=== PATIENT | female | born 1945 | race Caucasian/White ===

== ENCOUNTER 2017-04-09 10:53 | Inpatient (IN) | payer MEDICARE ==
[~2017-04-09 10:53] MED LIST: ACETAMINOPHEN 1,000 MG/100 ML BTL IV ONE; CELECOXIB 100 MG CAPSULE PO ONE; FAMOTIDINE 20MG TABLET PO ONE; MECLIZINE 25 MG TABLET PO ONE; METOCLOPRAMIDE 10 MG TABLET PO ONE; VANCOMYCIN HCL 1,000 MG in 0.9 % SODIUM CHLORIDE 250ML 250 ML IVPB ONE
[2017-04-09 13:31] LABS: ABO GROUP O; ANTIBODY SCREEN NEGATIVE (NEGATIVE); RH TYPE POSITIVE
[2017-04-09] MEDS ORDERED: FENTANYL PF 100MCG/2ML VIAL IV ONE (14:00)
[2017-04-09] MEDS ORDERED: PROPOFOL 10 MG/ML VIAL IV ONE (14:00)
[2017-04-09] MEDS ORDERED: MIDAZOLAM HCL 2MG/2ML VIAL IV ONE (14:00)
[2017-04-09] MEDS ORDERED: DIPHENHYDRAMINE HCL IV 50 MG/ML VIAL IVP ONE (14:00)
[2017-04-09] MEDS ORDERED: HYDROMORPHONE HCL 2 MG/ML VIAL IV ONE (14:00)
[2017-04-09] MEDS ORDERED: LIDOCAINE 2% MDV (20MG/ML) 20ML VIAL IV ONE (14:00)
[2017-04-09] MEDS ORDERED: MORPHINE SULFATE 5 MG/ML PFS IVP PRN ×4 (14:44)
[2017-04-09] MEDS ORDERED: TRAMADOL HCL 50 MG TABLET PO PRN ×2 (14:44)
[2017-04-09] MEDS ORDERED: DIPHENHYDRAMINE HCL 25 MG CAPSULE PO PRN (14:44)
[2017-04-09] MEDS ORDERED: HYDROCODONE/APAP 7.5/325MG TABLET PO PRN (14:44)
[2017-04-09] MEDS ORDERED: KETOROLAC 30 MG/ML VIAL IVP PRN ×2 (14:44)
[2017-04-09] MEDS ORDERED: ZOLPIDEM TARTRATE 5 MG TABLET PO PRN (14:44)
[2017-04-09] MEDS ORDERED: HYDROMORPHONE HCL 2 MG/ML VIAL IM PRN (14:44)
[2017-04-09] MEDS ORDERED: AL HYDROX/MAG HYDROX 30ML UD PO PRN (14:44)
[2017-04-09] MEDS ORDERED: PROMETHAZINE HCL 12.5 MG in 0.9 % SODIUM CHLORIDE 100ML 50 ML IVPB PRN (14:44)
[2017-04-09] MEDS ORDERED: ONDANSETRON HCL IV 4 MG/2 ML VIAL IVP PRN (14:44)
[2017-04-09] MEDS ORDERED: MAGNESIUM HYDROXIDE 30 ML UDC PO PRN (14:44)
[2017-04-09] MEDS ORDERED: BISACODYL 10 MG SUPP RC PRN (14:44)
[2017-04-09] MEDS ORDERED: METOCLOPRAMIDE HCL 10 MG/2 ML VIAL IVP PRN (14:44)
[2017-04-09] MEDS ORDERED: ACETAMINOPHEN 325 MG TAB PO PRN (14:44)
[2017-04-09] MEDS ORDERED: HYDROCODONE/APAP 5/325MG TABLET PO PRN ×2 (14:44)
[2017-04-09] MEDS ORDERED: NALOXONE 0.4 MG/1 ML VIAL IVP PRN (14:44)
[2017-04-09] MEDS ORDERED: ACETAMINOPHEN W/ CODEINE 300MG/30MG TABLET PO PRN ×2 (14:44)
[2017-04-09] MEDS ORDERED: HYDROMORPHONE HCL 1MG/ML **SYRINGE IM PRN (14:44)
[2017-04-09] MEDS ORDERED: ACETAMINOPHEN W/ CODEINE 300MG/60MG TABLET PO PRN ×2 (14:44)
[2017-04-09] MEDS ORDERED: DEXTROSE 5 % AND 0.9 % NACL 1,000 ML IV PRN (17:30)
[2017-04-09] MEDS: FERROUS SULFATE 325 MG TAB PO SCH (22:51)
[2017-04-09] MEDS: DOCUSATE SODIUM 100 MG CAPSULE PO SCH (22:51)
[2017-04-09] MEDS ORDERED: FLU VAC QS 2017-18 (INPT, 6MO+) 60MCG/0.5ML IM ONE (23:21)
[2017-04-10] MEDS: VANCOMYCIN HCL 1,000 MG in 0.9 % SODIUM CHLORIDE 250ML 250 ML IVPB SCH ×2 (02:46→14:05)
[2017-04-10 06:30] LABS: HEMATOCRIT 29.7 % (35.0-47.0); HEMOGLOBIN 9.4 gm/dl (11.6-16.0)
[2017-04-10] MEDS ORDERED: MECLIZINE 25 MG TABLET PO PRN (06:52)
[2017-04-10] MEDS: CELECOXIB 100 MG CAPSULE PO SCH (10:22)
[2017-04-10] MEDS: FERROUS SULFATE 325 MG TAB PO SCH ×2 (10:22→21:40)
[2017-04-10] MEDS: RIVAROXABAN 10 MG TABLET PO SCH (10:23)
[2017-04-10] MEDS: ATENOLOL PO SCH ×2 (10:23→11:19)
[2017-04-10] MEDS: CHLORTHALIDONE PO SCH ×2 (10:23→11:19)
[2017-04-10] MEDS: DOCUSATE SODIUM 100 MG CAPSULE PO SCH ×2 (10:23→21:40)
[2017-04-10] MEDS: INVOKANA 100 MG PO SCH (10:24)
[2017-04-10] MEDS: PATIENT OWN MED: LISINOPRIL 20 MG PO SCH ×2 (10:24→11:19)
[2017-04-10] MEDS: PATIENT OWN MED: PRAVASTATIN 80 MG PO SCH (10:25)
--- NOTE | 2017-04-10 11:15 | Rehab Evaluation ---
Patient Information - Patient Information Diagnosis: R hip OA Ordered Treatment: PT Evaluate and Treat Status: Initial Evaluation Surgery: Yes Date of Surgery: 04/09/17 Past Medical/Surgical Hx: PAST MEDICAL/SURGICAL HISTORY Past Surgical History back surgery x2 right carpal tunnel sx laproscopic hiatal hernia repair PMH - Respiratory Hx Respiratory Disorders Yes Hx Bronchitis Yes: none recently Comment: has chronic cough-nonproductive PMH - Cardiovascular Hx Cardiovascular Disorders Yes Hx Hypertension Yes Exercise Tolerance Fair Comment: due to hip pain less now PMH - Neuro Hx Neurological Disorders Yes Hx Neuropathy Yes: left carpal tunnel syndrome PMH - GI Hx Gastrointestinal Disorders Yes Hx Gastroesophageal Reflux Yes: has cough probably from acid reflux Hx Hiatal Hernia Yes: repaired Hx Nausea/Vomiting "sick sour stomach from milk products" Hx Weight Loss/Weight Gain Yes: recently 20lbs loss over this last summer PMH - Hx Genitourinary Disorders No Patient No PMH - Endocrine Hx Endocrine Disorders Yes Hx Diabetes Yes Hx of NIDDM Yes Comment: last A1c 6.5 within last 6 months PMH - Musculoskeletal Hx Musculoskeletal Disorders Yes Hx Arthritis Yes PMH - Psych Hx Psychiatric Problems Yes Hx Anxiety Yes PMH - Hematology/Oncology Hx Hematology/Oncology No Disorders Premorbid Status: Detail (The patient was independent with all mobility and ADL' s.) Social History: Detail (The patient lives alone but is going to be staying with her daughter upon discharge. The patient's daughter has a single story home with one step, platform and one step at the enterance without railings. The bathroom is equipped with a walk in shower and regular toilet ( The patient's daughter is acquiring a riser seat and shower seat), no grab bars are present. The patient was vended a walker at pre-op instruction.) Precautions: [place], Other (JARED precautions) - Time With Patient Total Time Spent With Patient (Min): 30 Treatment Procedures: Detail (Initial Evaluation, Home exercise program review including: ankle pumps, gluteal sets, hamstring sets, heelslides, hip abduction and quad sets all x 10 reps.) Subjective Information - Subjective Information Per Patient (The patient had minimal complaints of R hip pain. The patient required cueing to correctly name all the hip precautions. The patient had complaints of lightheadness.) Objective Data - Mental Status Patient Orientation: Oriented x3 - Visual Perception Appears within normal limits for therapeutic activities - ROM Not within normal limits (The patient's L LE AROM was WNL. The patient's R LE ROM was within THR precautiosn) - Strength/Tone Not within normal limits (The patient's L LE strength was generally 4+ to 5/5. The patient's R LE strength was functional ie: the patient was able to lift R LE up on bed without assistance.) - Bed Mobility Independent (The patient was independent with supine to sit without use of trapeze. The patient required minimal PA to guide LE's into bed with sit to supine.) - Transfers Independent (The patient was independent with sit to stand transfer with verbal cues to push up from the surface. The patient was independent with toilet transfer (raised seat) except patient requested assistance pulling up briefs.) - Balance Balance Sitting: Good Balance Standing: Good - Gait Detail (The patient ambulated with wheeled walker WBAT on the R LE a distance of 80 feet with supervision for safety.) Therapy Assessment - Therapy Assessment Detail (The patient required verbal cueing for transfers, bed mobility and JARED precautions. Feel the patient will progress well with mobility.) Patient Education - Patient Education Teaching Topic: Precautions (JARED precaution review) Response: Reinforcement Needed Teaching Method: Discussion Teaching Recipient: Patient Barriers To Learning: Age Related Problem List - Problem List Physical Therapy Problem List: Detail (1) Assistance with bed mobility 2) Verbal cueing with transfers and JARED precautions 3) Non ambulatory on stairs) Goals - Goals Physical Therapy Goals: 1) The patient will be independent with bed mobility and all transfers 2) The patient will be independent with HEP and know JARED precautions without cueing 3) The patient will be independent with ambulations with assistive device on levels and supervision/independent with ambulation on stairs, WBAT on the R LE. Prognosis - Prognosis Good Plan - Plan Physical Therapy Plan: PT 1-2 times a day for gait training, transfer training, bed mobility and instruction in HEP until inpatient PT goals have been met.
--- NOTE | 2017-04-10 14:43 | Operative Note ---
DATE OF SURGERY: 04/09/2017 PREOPERATIVE DIAGNOSIS: End-stage right hip arthrosis. POSTOPERATIVE DIAGNOSIS: End-stage right hip arthrosis. OPERATION: Right total hip arthroplasty. SURGEON: Michi Fermin M.D. ANESTHESIA: Spinal. ANESTHESIA PROVIDER: Daron Avitia CRNA COMPLICATIONS: None. BLOOD LOSS: 200 mL. OPERATIVE FINDINGS: Severe byns-gf-sfud hip arthrosis with superolateral subluxation. COMPONENTS PLACED: 2 gram Vancomycin cement Guadalupe [employer] Nephew cemented Synergy total hip arthroplasty system size 13 high offset stem with collar. A 32+ 0 mm Laura chrome head, a 52 mm 3-hole acetabular reflection/acetabular shell with one acetabular screw, two screw caps centrally threaded screw cap, and a 35 degree hooded high crosslinked polyethylene liner. INDICATION FOR OPERATION: This is a 72-year-old female who has end-stage right hip arthrosis, failed outpatient treatment. Scheduled for right total hip arthroplasty. I explained the risks and benefits in great detail, her diagnosis and procedures including but not limited to; infection, nerve injury, vessel injury, persistent pain, persistent numbness and tingling in her hip, periprosthetic fracture, need for resection arthroplasty, should the components become infected or loosened, nerve injury, vessel injury, blood clot, need for further procedures, and need for anticoagulation to prevent blood clots. All of her questions were answered, the rehab and healing course were outlined and agreed to proceed. PROCEDURE: The patient was brought to the OR and placed in the left lateral decubitus position. The right hip and lower extremity were prepped and draped in a sterile fashion. The right hip was prepped again with ChloraPrep after it was draped. Intraoperative time-out was performed. Next, a posterior approach was marked over the hip. It was infiltrated with 0.50 % Marcaine with Epinephrine. The skin and subcutaneous tissues were dissected down into the gluteal fascia. The gluteal fascia was split longitudinally. Subgluteal plane was bluntly dissected and I placed a self-retainer in. I identified the sciatic nerve with care to protect it and retract it at all times out of the way. Next, I identified the short external rotators, took them off attachment, tagged them with #2 Vicryl and exposed the femoral neck. We then released the femoral neck superiorly extending inferiorly to superiorly. We released the base of the femoral neck then next we dislocated the femoral head without without difficulty. Next, I resected the femoral head about 1.5 cm above the lesser trochanter. Next, removed the short external rotator tendon stumps, inserted the box osteotome, then started reaming by 1 mm increments working up from a size 8 to a size 13. We stopped there. We broached an 11 calcar plane, then a 12, then a 13. Next, attention was turned to the acetabulum. We placed the inferior acetabular retractor, released the capsule anteriorly and placed an anterior retractor there and resected the labrum and capsule around the periphery of the acetabulum. Next, started reaming with a 44 mm reamer working in 1 mm increments, 45 inclination, 20 degrees anteversion to ream up to a size 51. We trialed a 52, had good fit, and we impacted down the real 3-hole reflection acetabular shell component with a helicopter guide 45 degrees inclination and 20 degrees anteversion until it flushed with the medial wall. Next, we drilled a posterior/superior central quadrant screw hole, inserted 45 mm screw and had excellent purchase. Next, I placed a trial liner and did a trial reduction. Best combination of range of motion, stability and leg lengths equal was with a 32+ 0 mm high offset neck. This allowed for good abductor tension and symmetric leg lengths, flexion to 90 degrees and internal rotation to 70/80 before any chance of dislocation of the hip and the stability with extension with external and internal rotation. This is the size that we used. Next, we removed all trial components, irrigated the acetabular shell, placed a centrally threaded screw cap, two screw caps, and impacted down the real poly insert with the velasquez in the posterior/superior quadrant 20 degree hooded highly crosslinked polyethylene liner through the posterior/superior quadrant and verified it was locked. We irrigated the femoral canal, placed a cement restrictor distally, and injected the cement 3rd generation cement technique. Removed the suction catheter and impacted down the real femoral stem in 15 degrees of anteversion until the collar was flushed with the medial calcar and held there until the cement hardened. Next, we cleaned and dried the trunnion and impacted down the real femoral head component, re-reduced the hip, final range of motion and stability were the same. Next, we irrigated copiously. We closed the short external rotators to the abductors using a #2 Vicryl stitch, irrigated again, and injected around the periphery of the deep capsule gluteal fascia muscle with several sticks of the 0.50% Marcaine with Epinephrine, 2 grams of Tranexamic Acid, Exparel mixture, and the patient received 1 gram IV Tranexamic Acid preop and postop and Toradol IV. We closed the gluteal fascia with a running #2 quill. We closed the skin deep with two 2-0 Vicryl and a ZipLine. The patient tolerated the procedures well. No intraoperative complications. Sponge, needle and blade counts were correct. Sent to Recovery stable, neuro intact. Discharge to Outpatient. Intraoperative x-rays had good fit and orientation of components. cc: Dr. Jose Luis Calvo JOB NUMBER: [id number] MTDD
[2017-04-10] MEDS ORDERED: VANCOMYCIN HCL 1 GM VIAL IVPB ONE (15:07)
--- NOTE | 2017-04-10 15:12 | Rehab Evaluation ---
Patient Information - Patient Information Diagnosis: R hip OA Ordered Treatment: OT Evaluate and Treat Status: Initial Evaluation Surgery: Yes (right total hip arthroplasty) Date of Surgery: 04/09/17 Past Medical/Surgical Hx: PAST MEDICAL/SURGICAL HISTORY Past Surgical History back surgery x2 right carpal tunnel sx laproscopic hiatal hernia repair PMH - Respiratory Hx Respiratory Disorders Yes Hx Bronchitis Yes: none recently Comment: has chronic cough-nonproductive PMH - Cardiovascular Hx Cardiovascular Disorders Yes Hx Hypertension Yes Exercise Tolerance Fair Comment: due to hip pain less now PMH - Neuro Hx Neurological Disorders Yes Hx Neuropathy Yes: left carpal tunnel syndrome PMH - GI Hx Gastrointestinal Disorders Yes Hx Gastroesophageal Reflux Yes: has cough probably from acid reflux Hx Hiatal Hernia Yes: repaired Hx Nausea/Vomiting "sick sour stomach from milk products" Hx Weight Loss/Weight Gain Yes: recently 20lbs loss over this last summer PMH - Hx Genitourinary Disorders No Patient No PMH - Endocrine Hx Endocrine Disorders Yes Hx Diabetes Yes Hx of NIDDM Yes Comment: last A1c 6.5 within last 6 months PMH - Musculoskeletal Hx Musculoskeletal Disorders Yes Hx Arthritis Yes PMH - Psych Hx Psychiatric Problems Yes Hx Anxiety Yes PMH - Hematology/Oncology Hx Hematology/Oncology No Disorders Premorbid Status: Detail (The patient was independent with all mobility, ADL's, meal prep, laundry and home mgmt. She has a 2 wheeled walker, straight cane and procurement coordinator.) Social History: Detail (The patient lives alone but is going to be staying with her daughter upon discharge. The patient's daughter has a single story home with one step, platform and one step at the entrance without railings. The bathroom is equipped with a walk in shower and regular toilet ( The patient's daughter is acquiring a riser seat and shower seat), no grab bars are present. The patient was vended a walker at pre-op instruction.) Precautions: [place], [place], Other (JARED precautions) - Time With Patient Total Time Spent With Patient (Min): 40 Treatment Procedures: Detail (OT eval low complexity) Subjective Information - Subjective Information Per Patient Objective Data - Pain Pain Present: No (No pain currently) - Mental Status Patient Orientation: Oriented x3 - Visual Perception Appears within normal limits for therapeutic activities - ROM Within normal limits (John UE AROM WNL) - Strength/Tone Within normal limits (John UE strength WNL) - Coordination Appears within normal limits for therapeutic activities - Bed Mobility Independent (Ind with supine to sit) - Transfers Independent (Ind with sit to stand from EOB and chair.) - Balance Balance Sitting: Good Balance Standing: Good - Sensation Intact - Gait Detail (Pt ambulating in room with 2 wheeled walker Indly.) - ADL's/IADL's Detail (Pt able to doff slippers and don pants with procurement coordinator using modified techniques with verbal cues to maintain hip precautions. She was able to use sock aid to don socks. She was Ind with donning tennis shoes that were tied loosely. Reviewed ADL equipment, pt will hold off on sock aid but has procurement coordinator and long bath sponge.) Therapy Assessment - Therapy Assessment Detail (Pt is safe and Ind with self cares using adaptive equipment while maintaining total hip precautions.) Problem List - Problem List Physical Therapy Problem List: Detail (1) Assistance with bed mobility 2) Verbal cueing with transfers and JARED precautions 3) Non ambulatory on stairs) Occupational Therapy Problem List: Detail (No current OT problems identified.) Goals - Goals Physical Therapy Goals: 1) The patient will be independent with bed mobility and all transfers 2) The patient will be independent with HEP and know JARED precautions without cueing 3) The patient will be independent with ambulations with assistive device on levels and supervision/independent with ambulation on stairs, WBAT on the R LE. Occupational Therapy Goals: No current OT goals identified. Prognosis - Prognosis Good Plan - Plan Physical Therapy Plan: PT 1-2 times a day for gait training, transfer training, bed mobility and instruction in HEP until inpatient PT goals have been met. Occupational Therapy Plan: No further IP OT recommended at this time. Thank you for this referral.
--- NOTE | 2017-04-10 15:22 | Physical Therapy Tx Note ---
Physical Therapy Tx Note - Treatment Note Tolerated: Good Total Time Spent With Patient: 20 Physical Therapy Tx Note: Detail (The patient was finishing OT treatment when PT arrived. The patient ambulated with wheeled walker WBAT on the R LE with supervision for safety a distance 70 feet x 1. The patient ambulated to bathroom and was independent with toilet transfer. The patient acheived sit to supine independently.) Physical Therapy Problem List: Detail (1) Assistance with bed mobility 2) Verbal cueing with transfers and JARED precautions 3) Non ambulatory on stairs) Physical Therapy Goals: 1) The patient will be independent with bed mobility and all transfers 2) The patient will be independent with HEP and know JARED precautions without cueing 3) The patient will be independent with ambulations with assistive device on levels and supervision/independent with ambulation on stairs, WBAT on the R LE. Physical Therapy Plan: PT 1-2 times a day for gait training, transfer training, bed mobility and instruction in HEP until inpatient PT goals have been met.
--- NOTE | 2017-04-10 20:27 | RADIOLOGY REPORT ---
EXAM: HIP,UNILAT, 1 VIEW RIGHT HISTORY: POST RECENT TOTAL RIGHT HIP ARTHROPLASTY. TECHNIQUE: A single AP view of the right hip is obtained in the supine position portably. COMPARISON: None. ENCOUNTER: Initial. FINDINGS: There is mild diffuse osteopenia. There are changes of recent total right hip arthroplasty with a metallic prosthetic component appearing well seated. No complicating fracture or dislocation. Soft tissue swelling and soft tissue emphysema are noted at the surgical site. Vascular calcifications are scattered within the inferior pelvis. There are degenerative changes of the pubic symphysis. IMPRESSION: STATUS POST RECENT TOTAL RIGHT HIP ARTHROPLASTY WITHOUT COMPLICATING FRACTURE OR DISLOCATION. JOB NUMBER: [id number] [facility]
[2017-04-10] MEDS: HYDROCODONE/APAP 7.5/325MG TABLET PO PRN (20:41)
[2017-04-11] MEDS: HYDROCODONE/APAP 7.5/325MG TABLET PO PRN (03:00)
[2017-04-11 06:30] LABS: HEMATOCRIT 25.1 % (35.0-47.0); HEMOGLOBIN 7.9 gm/dl (11.6-16.0)
[2017-04-11] MEDS: RIVAROXABAN 10 MG TABLET PO SCH (09:57)
[2017-04-11] MEDS: CELECOXIB 100 MG CAPSULE PO SCH (09:57)
[2017-04-11] MEDS: FERROUS SULFATE 325 MG TAB PO SCH (09:57)
[2017-04-11] MEDS: DOCUSATE SODIUM 100 MG CAPSULE PO SCH (09:57)
[2017-04-11] MEDS: PATIENT OWN MED: PRAVASTATIN 80 MG PO SCH (09:59)
[2017-04-11] MEDS: CHLORTHALIDONE PO SCH (10:08)
[2017-04-11] MEDS: ATENOLOL PO SCH (10:08)
[2017-04-11] MEDS: INVOKANA 100 MG PO SCH (10:09)
[2017-04-11] MEDS: PATIENT OWN MED: LISINOPRIL 20 MG PO SCH (10:10)
--- NOTE | 2017-04-11 10:40 | Physical Therapy Tx Note ---
Physical Therapy Tx Note - Treatment Note Tolerated: Good Total Time Spent With Patient: 30 Physical Therapy Tx Note: Detail (Patient was reclined in bed when MEDICAID SPECIALIST arrived. Patient states 2/10 pain in right hip. Patient transferred supine to sit independently. Patient transferred sit to and from stand independently. Patient ambulated 15 feet with wheeled walker SBA x1. Patient ascended and descended 3 steps CGA x1. Patient ambulated 161 feet with wheeled walker SBA x1. Patient transferred sit to supine independently. Patient performed the following exercises: SLR with assist x5, ankle pumps x10, quad sets x10, glut squeezes x10, isometric hip adduction x10, supine hip abduction x5, and heel slides x10. Patient reports hip sore after treatment. Patient reports fatigued with exercises. Patient was left reclined in bed with call light within reach. Patient has passed all physical therapy goals and is discharged from inpatient PT at this time.) Physical Therapy Problem List: Detail (1) Assistance with bed mobility 2) Verbal cueing with transfers and JARED precautions 3) Non ambulatory on stairs) Physical Therapy Goals: 1) The patient will be independent with bed mobility and all transfers 2) The patient will be independent with HEP and know JARED precautions without cueing 3) The patient will be independent with ambulations with assistive device on levels and supervision/independent with ambulation on stairs, WBAT on the R LE. Prognosis: Good Physical Therapy Plan: Discharge patient from inpatient physical therapy, as all goals are passed.
== END 2017-04-11 14:00 | disposition home health service (06) | DRG 470 ==
LOC: MEDSURG 12:01
PROVIDERS: ADMIT Orthopaedic Surgery; ATTEND Orthopaedic Surgery
PROC: 0SR9029 Replacement of Right Hip Joint with Metal on Polyethylene Synthetic Substitute, Cemented, Open Approach (ICD-10-PCS; principal; 2017-04-09 14:30)
DX: M16.11 Unilateral primary osteoarthritis, right hip (principal); E11.9 Type 2 diabetes mellitus without complications; Z79.84 Long term (current) use of oral hypoglycemic drugs; E78.00 Pure hypercholesterolemia, unspecified; I10 Essential (primary) hypertension
CPT/HCPCS: 36416; 82948; 85014; 85018; 86850; 86900; 86901; 94761; 97110; 97165; 97530; 99232; J1200; J2405; J7042; J7050

== ENCOUNTER 2019-03-18 10:43 | Day surgery (SDC) | payer MEDICARE ==
[~2019-03-18 10:43] MED LIST changes: -ACETAMINOPHEN 1,000 MG/100 ML BTL IV ONE; +CEFAZOLIN 2 Gram 2 GM/50 ML BAG IVPB ONE; +VANCOMYCIN 1GM/200ML PREMIX 1 GM/200 ML PIGGYBACK IVPB ONE; -VANCOMYCIN HCL 1,000 MG in 0.9 % SODIUM CHLORIDE 250ML 250 ML IVPB ONE
[2019-03-18] MEDS ORDERED: PROPOFOL 10 MG/ML VIAL IV ONE (10:44)
[2019-03-18] MEDS ORDERED: DEXAMETHASONE 4 MG/ML 1ML VIAL IVP ONE (10:44)
[2019-03-18] MEDS ORDERED: DIPHENHYDRAMINE HCL 50 MG/ML VIAL IVP ONE (10:44)
[2019-03-18] MEDS ORDERED: FENTANYL PF 100MCG/2ML VIAL IV ONE (10:44)
[2019-03-18] MEDS ORDERED: LIDOCAINE 2% MDV (20MG/ML) 20ML VIAL IV ONE (10:44)
[2019-03-18] MEDS ORDERED: GLYCOPYRROLATE 0.2 MG/ML ML IV ONE (10:44)
[2019-03-18] MEDS ORDERED: ROPIVACAINE HCL (NAROPIN) /PF 5MG/ML 20ML VIAL IV ONE (10:44)
[2019-03-18] MEDS ORDERED: MIDAZOLAM HCL 2MG/2ML VIAL IV ONE (10:44)
[2019-03-18] MEDS ORDERED: 0.9 % SODIUM CHLORIDE 1000ML 1,000 ML IV ONE ×3 (11:05→12:00)
[2019-03-18 11:22] LABS: ABO GROUP O; RH TYPE POSITIVE
[2019-03-18] MEDS ORDERED: BUPIVACAINE 0.5% W/EPI MPF 30 ML VIAL SQ ONE (12:09)
[2019-03-18] MEDS ORDERED: TRANEXAMIC ACID 1,000 MG/10 ML ML IV ONE (12:10)
[2019-03-18] MEDS ORDERED: TRANEXAMIC ACID 1,000 MG/10 ML ML IU ONE (12:10)
[2019-03-18 12:18] LABS: ANTIBODY SCREEN NEGATIVE (NEGATIVE)
[2019-03-18] MEDS ORDERED: MAGNESIUM HYDROXIDE 30 ML UDC PO PRN (13:21)
[2019-03-18] MEDS ORDERED: KETOROLAC 30 MG/ML VIAL IVP PRN (13:21)
[2019-03-18] MEDS ORDERED: ACETAMINOPHEN W/ CODEINE 300MG/60MG TABLET PO PRN ×2 (13:21)
[2019-03-18] MEDS ORDERED: DIPHENHYDRAMINE HCL 25 MG CAPSULE PO PRN (13:21)
[2019-03-18] MEDS ORDERED: AL HYDROX/MAG HYDROX 30ML UD PO PRN (13:21)
[2019-03-18] MEDS ORDERED: HYDROCODONE/APAP 10/325 TABLET PO PRN (13:21)
[2019-03-18] MEDS ORDERED: BISACODYL 10 MG SUPP RC PRN (13:21)
[2019-03-18] MEDS ORDERED: ZOLPIDEM TARTRATE 5 MG TABLET PO PRN (13:21)
[2019-03-18] MEDS ORDERED: TRAMADOL HCL 50 MG TABLET PO PRN (13:21)
[2019-03-18] MEDS ORDERED: ACETAMINOPHEN 325 MG TAB PO PRN (13:21)
[2019-03-18] MEDS ORDERED: NALOXONE 0.4 MG/1 ML VIAL IVP PRN (13:21)
[2019-03-18] MEDS ORDERED: HYDROMORPHONE HCL 2 MG/ML VIAL IM PRN (13:21)
[2019-03-18] MEDS ORDERED: ONDANSETRON HCL IV 4 MG/2 ML VIAL IVP PRN (13:21)
[2019-03-18] MEDS ORDERED: FLU VAC QS 2019-20 (INPT, 6MO+) 60MCG/0.5ML IM ONE (14:44)
[2019-03-18] MEDS ORDERED: LORAZEPAM 0.5 MG TABLET PO PRN (14:55)
[2019-03-18] MEDS ORDERED: LORATADINE 10 MG TABLET PO PRN (14:55)
[2019-03-18] MEDS ORDERED: CHLORTHALIDONE 25 MG TABLET PO SCH (15:00)
[2019-03-18] MEDS: 0.9 % SODIUM CHLORIDE 1000ML 1,000 ML IV SCH ×2 (15:25→23:59)
[2019-03-18] MEDS: HYDROCODONE/APAP 10/325 TABLET PO PRN ×2 (16:34→21:46)
[2019-03-18] MEDS: PRAVASTATIN 80MG PO SCH (18:51)
[2019-03-18] MEDS: CEFAZOLIN 2 Gram 2 GM/50 ML BAG IVPB SCH (20:31)
[2019-03-18] MEDS: DOCUSATE SODIUM 100 MG CAPSULE PO SCH (21:49)
[2019-03-18] MEDS ORDERED: METFORMIN ER 500MG PO SCH (22:00)
[2019-03-19] MEDS: CEFAZOLIN 2 Gram 2 GM/50 ML BAG IVPB SCH ×2 (03:48→11:36)
[2019-03-19 06:51] LABS: HEMATOCRIT 28.2 % (35.0-47.0); HEMOGLOBIN 8.7 gm/dl (11.6-16.0)
[2019-03-19 07:01] LABS: CREATININE 1.3 mg/dL (0.5-0.9)
--- NOTE | 2019-03-19 07:21 | Operative Note ---
DATE OF SURGERY: 03/18/2019 PREOPERATIVE DIAGNOSIS: End-stage arthrosis of the right knee. POSTOPERATIVE DIAGNOSIS: End-stage arthrosis of the right knee. OPERATION: Cemented right total knee arthroplasty using Guadalupe [employer] Nephew Taina II components with a size 6 cobalt chrome femur, a size 5 stemmed tibia baseplate, a 9 mm lipped tibial insert, and a 35 mm all-plastic patella. STAFF SURGEON: Brett Gooden MD ANESTHESIA: Spinal. PREPARATION: Chloraprep. INDIVIDUAL CONSIDERATIONS: None. PROCEDURE: The patient was taken to the operating room, placed supine on the operating room table. She had a successful induction of a spinal anesthetic. The right lower extremity was prepped and draped in the usual fashion. The patient had a midline approach to the knee. Sharp dissection carried down through skin and subcutaneous tissue. Small veins were coagulated with a Bovie. A medial arthrotomy was performed. The patella was everted and the knee was flexed. The patient had exposed bone throughout with bone loss. Fat pad was resected, ACL was sacrificed, and provisional anterior meniscectomies were performed. The capsule was released from the medial proximal tibia. The initial femoral pilot plant supervisor hole was then made freehand. The intramedullary femoral cutting jig was placed. It was cut in 7.0 degrees of valgus and adjusted for rotation and secured with pins for a 10 mm resection. The initial transverse cut was then made. The skin guide was placed in the anterior and posterior pilot plant supervisor holes. It was found that a size 6 would be appropriate. The anterior and posterior cuts followed by chamfer cuts were made. Osteophytes removed, and a size 6 trial was placed and found to fit well. The tibia was brought forward, and the remainder of the meniscal remnants removed with a Bovie. The extraarticular tibial cutting jig was placed. It was cut in neutral with a 3-degree AP slope. It was set for a 9 mm resection keyed off the high lateral side and secured with pins. When cutting the tibia, care was taken to preserve the PCL insertion on the tibia. Large osteophytes were removed, and I could fit a size 5 baseplate. It was adjusted for rotation and secured with pins. With a 9 mm trial and femoral trial, there was excellent motion and stability. The ligamentous balance, rotation, and alignment were thought to be normal. Femoral pilot plant supervisor holes were impacted and tri-flange tibial stamp was impacted, and these trial components were removed. The patient had a thick patella and roughly 9 mm of bone was removed freehand. I was easily able to fit a 35 mm patella, and the 3 pilot plant supervisor holes were drilled. The tourniquet was let down briefly to get bleeders posteriorly and then placed back up again. The knee was then thoroughly irrigated out with pulsatile Betadine and saline to remove any visual or palpable debris. Bony surfaces were then dried. A size 5 stemmed tibia baseplate was cemented into place followed by impaction of the 9 mm lipped tibial insert followed by cementing in the size 6 cobalt chrome femur followed by cementing in the 35 mm patella. The implant surfaces were compressed, excess cement was removed. After the cement had set, there was excellent motion and stability, ligamentous balance, rotation alignment, and patellofemoral tracking were normal. Limited lateral release was required to facilitate tracking because she did have a valgus knee. Tourniquet was let down. Hemostasis was obtained with a Bovie. Again thorough irrigation. The capsule was then closed with a running #2 quill, subcu was closed in layers with running 0 quill, skin was closed with augie. Then 1 g of tranexamic acid was mixed with 30 mL of saline and injected into the knee through a sterile 18-gauge needle, and a sterile bulky compressive JOE-type dressing was applied. The patient tolerated the procedure well. Needle and sponge counts were correct. Estimated blood loss was minimal, and she was taken back to recovery in good condition. There were no complications. NEO
--- NOTE | 2019-03-19 08:28 | Rehab Evaluation ---
Patient Information - Patient Information Diagnosis: right knee OA Ordered Treatment: OT Evaluate and Treat Status: Initial Evaluation Surgery: Yes (right total knee arthroplasty) Date of Surgery: 03/18/19 Past Medical/Surgical Hx: PAST MEDICAL/SURGICAL HISTORY Past Surgical History RTHA 2017 back surgery x2 right carpal tunnel sx laproscopic hiatal hernia repair PMH - Respiratory Hx Respiratory Disorders Yes Hx Bronchitis Yes: none recently Comment: has chronic cough-nonproductive PMH - Cardiovascular Hx Cardiovascular Disorders Yes Hx Hypertension Yes Exercise Tolerance Fair Comment: due to hip pain less now PMH - Neuro Hx Neurological Disorders Yes Hx Neuropathy Yes: left carpal tunnel syndrome PMH - GI Hx Gastrointestinal Disorders Yes Hx Gastroesophageal Reflux Yes: has cough probably from acid reflux Hx Hiatal Hernia Yes: repaired Hx Nausea/Vomiting "sick sour stomach from milk products" Hx Weight Loss/Weight Gain Yes: recently 20lbs loss over this last summer PMH - Hx Genitourinary Disorders No Hx Renal Disease Yes: PROBLEMS AT TIMES WITH LOW GFR PCP FOLLOWS PMH - Endocrine Hx Endocrine Disorders Yes Hx Diabetes Yes Hx of NIDDM Yes Comment: last A1c 6.5 within last 6 months PMH - Musculoskeletal Hx Musculoskeletal Disorders Yes Hx Arthritis Yes PMH - Psych Hx Psychiatric Problems Yes Hx Anxiety Yes PMH - Hematology/Oncology Hx Hematology/Oncology No Disorders Premorbid Status: Detail (Pt lives alone in a 1 story house with a step, landing and another step. She has a tub/shower combination with a seat, no grab bars and a standard height toilet with an toilet riser, no grab bars. She has a 2 wheeled walker and suspension cord tier. She was Ind with all ADLs and IADLs including yard work.) Social History: Detail (Pt has family available to help on a limited basis.) Precautions: [place], [place], Other (WBAT right LE) - Time With Patient Total Time Spent With Patient (Min): 35 Treatment Procedures: Detail (OT eval low complexity) Subjective Information - Subjective Information Per Patient Objective Data - Pain Pain Present: No (0/10) - Mental Status Patient Orientation: Oriented x3 - Visual Perception Appears within normal limits for therapeutic activities - ROM Within normal limits (John UE AROM WNL) - Strength/Tone Within normal limits (John UE strength WNL although pt reports shoulder pain at times.) - Coordination Appears within normal limits for therapeutic activities - Bed Mobility Independent (Ind with supine to sit) - Transfers Independent (Ind with sit to stand from EOB, toilet and chair height.) - Balance Balance Sitting: Good Balance Standing: Good - Sensation Intact - Gait Detail (Pt ambulating in room with 2 wheeled walker and supervision.) - ADL's/IADL's Detail (Pt educated and able to demonstrate learning of modified LE dressing techniques including doffing slipper socks and donning shorts, jayjay sock (with assist) and tennis shoes. Reviewed kitchen and shower safety and modifications, pt able to verbalize understanding. Pt concerned about donning jayjay socks and prefers to keep them on all night. Reviewed ideas for having home therapist or family assist, pt agreeable.) Therapy Assessment - Therapy Assessment Detail (Pt is Ind with modified LE dressing techniques.) Problem List - Problem List Occupational Therapy Problem List: Detail (No IP OT problems identified.) Goals - Goals Occupational Therapy Goals: No current IP OT goals identified. Prognosis - Prognosis Good Plan - Plan Occupational Therapy Plan: No further IP OT recommended. Thank you for this referral.
[2019-03-19] MEDS: 0.9 % SODIUM CHLORIDE 1000ML 1,000 ML IV SCH (08:45)
[2019-03-19] MEDS: HYDROCODONE/APAP 10/325 TABLET PO PRN (08:46)
[2019-03-19] MEDS: PRAVASTATIN 80MG PO SCH (09:57)
[2019-03-19] MEDS: DOCUSATE SODIUM 100 MG CAPSULE PO SCH (09:59)
[2019-03-19] MEDS ORDERED: CHLORTHALIDONE 50MG PO SCH (10:00)
[2019-03-19] MEDS ORDERED: FLU VAC QS 2019-20 (INPT, 6MO+) 60MCG/0.5ML IM ONE (10:00)
[2019-03-19] MEDS ORDERED: RIVAROXABAN 10 MG TABLET PO SCH (10:00)
[2019-03-19] MEDS ORDERED: METOPROLOL SUCCINATE 25MG PO SCH (10:00)
[2019-03-19] MEDS ORDERED: FERROUS SULFATE 325 MG TAB PO SCH (10:00)
--- NOTE | 2019-03-19 10:31 | Rehab Evaluation ---
Patient Information - Patient Information Diagnosis: right knee OA Ordered Treatment: PT Evaluate and Treat Status: Initial Evaluation Surgery: Yes (right total knee arthroplasty) Date of Surgery: 03/18/19 Past Medical/Surgical Hx: PAST MEDICAL/SURGICAL HISTORY Past Surgical History RTHA 2017 back surgery x2 right carpal tunnel sx laproscopic hiatal hernia repair PMH - Respiratory Hx Respiratory Disorders Yes Hx Bronchitis Yes: none recently Comment: has chronic cough-nonproductive PMH - Cardiovascular Hx Cardiovascular Disorders Yes Hx Hypertension Yes Exercise Tolerance Fair Comment: due to hip pain less now PMH - Neuro Hx Neurological Disorders Yes Hx Neuropathy Yes: left carpal tunnel syndrome PMH - GI Hx Gastrointestinal Disorders Yes Hx Gastroesophageal Reflux Yes: has cough probably from acid reflux Hx Hiatal Hernia Yes: repaired Hx Nausea/Vomiting "sick sour stomach from milk products" Hx Weight Loss/Weight Gain Yes: recently 20lbs loss over this last summer PMH - Hx Genitourinary Disorders No Hx Renal Disease Yes: PROBLEMS AT TIMES WITH LOW GFR PCP FOLLOWS PMH - Endocrine Hx Endocrine Disorders Yes Hx Diabetes Yes Hx of NIDDM Yes Comment: last A1c 6.5 within last 6 months PMH - Musculoskeletal Hx Musculoskeletal Disorders Yes Hx Arthritis Yes PMH - Psych Hx Psychiatric Problems Yes Hx Anxiety Yes PMH - Hematology/Oncology Hx Hematology/Oncology No Disorders Premorbid Status: Detail (Pt lives alone in a 1 story house with a step, landing and another step. She has a tub/shower combination with a seat, no grab bars and a standard height toilet with an toilet riser, no grab bars. She has a 2 wheeled walker and nursing professor. She was Ind with all ADLs and IADLs including yard work.) Social History: Detail (Pt has family available to help on a limited basis.) Precautions: [place], [place], Other (WBAT right LE) - Time With Patient Total Time Spent With Patient (Min): 25 Treatment Procedures: Detail (Inital evaluation; low complexity The patient was left in bed with her call light and bedside table within reach. The nursing staff was notified of her position.) Subjective Information - Subjective Information Per Patient (Patient reported that she has 2/10 pain today in her R knee.) Objective Data - Pain Pain Present: Yes Pain Scale Used: Numeric (1 - 10) (2/10) - Mental Status Patient Orientation: Oriented x3 - Visual Perception Appears within normal limits for therapeutic activities - ROM Not within normal limits (R knee ROM limited as expected s/p R TKA procedure. R hip and ankle, and L LE ROM is within normal limits for functional activities.) - Strength/Tone Not within normal limits (R knee strength limited as expected s/p R TKA procedure. R ankle and hip, and L LE strength is within functional limits.) - Coordination Appears within normal limits for therapeutic activities - Bed Mobility Independent (Patient is independent in all bed mobility tasks.) - Transfers Independent (Patient is independent in supine to sit, sit to stand, stand to sit, and sit to supine transfers.) - Balance Balance Standing: Good - Sensation Intact - Gait Detail (Patient ambulated 200 feet over smooth surfaces with a front-wheeled walker independently. She completed stair training on 3 steps and demonstrated good technique.) Therapy Assessment - Therapy Assessment Detail (Patient has strength and ROM deficits, and pain as expected status post R TKA procedure. She has met all inpatient therapy goals at this time.) Problem List - Problem List Physical Therapy Problem List: Detail (1. Pain in R knee 2. Decreased R knee ROM 3. Decreased R knee strength 4. Gait abnormalities) Occupational Therapy Problem List: Detail (No IP OT problems identified.) Goals - Goals Physical Therapy Goals: Patient has met all inpatient therapy goals at this time. Occupational Therapy Goals: No current IP OT goals identified. Plan - Plan Physical Therapy Plan: The patient has met all inpatient therapy goals at this time of understanding HEP, and completing stair and gait training. She will continue with home PT following discharge. Occupational Therapy Plan: No further IP OT recommended. Thank you for this referral.
== END 2019-03-19 15:03 | disposition home health service (06) ==
LOC: SUR 10:43 → MEDSURG 14:11 → SUR 03-19 15:03
PROVIDERS: ATTEND Orthopaedic Surgery
DX: M17.11 Unilateral primary osteoarthritis, right knee (principal); I10 Essential (primary) hypertension; E78.00 Pure hypercholesterolemia, unspecified; E11.9 Type 2 diabetes mellitus without complications
CPT/HCPCS: 36416; 76942; 80048; 82948; 85014; 85018; 86850; 86900; 86901; 90686; C1776; J1200; J1885; J3370; J7030